=== PATIENT | male | born 1975 | race Caucasian/White ===

== ENCOUNTER → 2016-06-23 | Outpatient (CLI) | payer BC | LOC: COL.RAD 10:27 | DX: M65.871 Other synovitis and tenosynovitis, right ankle and foot (principal); S93.491A Sprain of other ligament of right ankle, initial encounter; M89.8X7 Other specified disorders of bone, ankle and foot ==

== ENCOUNTER 2020-11-28 07:14 | Emergency (ER) | payer BC ==
[~2020-11-28] VITALS: Ht 182.9 cm; Wt 104.5 kg
[2020-11-28] MEDS ORDERED: ZYLOPRIM 300MG300 MG PO (07:23)
[2020-11-28 07:38] LABS: COLLECTION METHOD CLEAN CATCH
[2020-11-28 07:43] LABS: MUCOUS Present /lpf; PH 5 (5-8); SQUAMOUS EPITHELIAL 0-2 /hpf; URINE APPEARANCE Clear; URINE BACTERIA None Seen /hpf; URINE BILIRUBIN Negative (NEGATIVE); URINE BLOOD 2+ (NEGATIVE); URINE COLOR Yellow; URINE GLUCOSE Negative (NEGATIVE); URINE KETONE Negative (NEGATIVE); URINE LEUKOCYTE ESTERASE Negative (NEGATIVE); URINE NITRATE Negative (NEGATIVE); URINE PROTEIN(semi-quant) Negative (NEGATIVE); URINE RBC >50 /hpf; URINE UROBILINOGEN Negative (NEGATIVE)
[2020-11-28 07:57] LABS: BASO # 0.1 (0.0-0.2); BASO % 0.7 % (0.0-2.0); EOS # 0.1 (0.0-0.7); EOS % 1.5 % (0-4.0); GRAN # 4.1 (1.4-6.5); GRAN % 54.4 % (42.2-75.2); HEMATOCRIT 44.7 % (42.0-52.0); HEMOGLOBIN 15.5 g/dl (13.5-18.0); LYMPH # 2.6 (1.2-3.4); LYMPH % 34.5 % (20.0-51.0); MEAN CELL VOLUME 91 fl (80.0-100.0); MEAN CORPUSCULAR HEMOGLOBIN 31 pg (27.0-31.0); MEAN CORPUSCULAR HGB CONC 35 g/dl (33.0-37.0); MEAN PLATELET VOLUME 9.5 fl (7.4-10.4); MONO # 0.6 (0.1-0.6); MONO % 8.2 % (1.7-9.3); PLATELET COUNT 309 K/mm3 (130-400); RED BLOOD COUNT 4.93 M/mm3 (4.20-5.60); REDCELL DISTRIBUTION WIDTH-CV 13.2 % (11.5-14.5)
[2020-11-28 08:11] LABS: ALBUMIN 4.1 gm/dL (3.5-5.0); BILIRUBIN,TOTAL 0.5 mg/dL (0.2-1.2); C-REACTIVE PROTEIN 0.1 mg/dL (0.00-0.50); CALCIUM 9.5 mg/dL (8.4-10.2); CREATININE, serum 1.14 mg/dL (0.72-1.25); TOTAL PROTEIN 7.1 gm/dL (6.2-8.1)
[2020-11-28] MEDS ORDERED: PERCOCET 325 MG1 TA2 PO (09:04)
[2020-11-28 09:23] VITALS: BP 137/96; PULSE 67
== END 2020-11-28 09:32 | disposition home or self-care (01) ==
LOC: COL.ER 07:14
PROVIDERS: Family Medicine
DX: N20.1 Calculus of ureter (principal); M10.9 Gout, unspecified; Z79.899 Other long term (current) drug therapy
CPT/HCPCS: J1885; J2270; J2405; J2550; J7120; Q9967

== ENCOUNTER 2022-06-24 16:33 | Emergency (ER) | payer BC ==
[~2022-06-24] VITALS: Ht 182.9 cm; Wt 111.4 kg
[~2022-06-24 16:33] MED LIST: PERCOCET 325 MG1 TA2 PO; ZYLOPRIM 300MG300 MG PO
[2022-06-24 17:09] LABS: BASO % 0.5 % (0.0-2.0); EOS # 0.1 K/mm3 (0.0-0.7); GRAN % 67.9 % (42.2-75.2); HEMATOCRIT 45.2 % (42.0-52.0); HEMOGLOBIN 15.9 g/dl (13.5-18.0); LYMPH # 1.2 K/mm3 (1.2-3.4); LYMPH % 19.7 % (20.0-51.0); MEAN CELL VOLUME 91 fl (80.0-100.0); MEAN CORPUSCULAR HEMOGLOBIN 32 pg (27-31); MEAN CORPUSCULAR HGB CONC 35 g/dl (33.0-37.0); MEAN PLATELET VOLUME 9.4 fl (7.4-10.4); MONO # 0.6 K/mm3 (0.1-0.6); MONO % 10.6 % (1.7-9.3); PLATELET COUNT 268 K/mm3 (130-400); RED BLOOD COUNT 4.97 M/mm3 (4.20-5.60); REDCELL DISTRIBUTION WIDTH-CV 12.9 % (11.5-14.5)
[2022-06-24 17:28] LABS: ALANINE AMINOTRANSFERASE 30 U/L (0-55); ALKALINE PHOSPHATASE 53 U/L (40-150); ANION GAP 9 mmol/L (7-16); AST,SGOT 24 U/L (5-34); BILIRUBIN,TOTAL 0.5 mg/dL (0.2-1.2); BLOOD UREA NITROGEN 13 mg/dL (9-21); CALCIUM 9.2 mg/dL (8.4-10.2); CARBON DIOXIDE 24 mmol/L (22-29); CHLORIDE 105 mmol/L (98-107); CREATININE, serum 0.93 mg/dL (0.72-1.25); GLUCOSE 124 mg/dL (70-99); SODIUM 138 mmol/L (136-145); TOTAL PROTEIN 7.4 gm/dL (6.2-8.1)
[2022-06-24 17:58] LABS: TROPONIN-I < 0.010 ng/mL (0.00-0.033)
[2022-06-24 21:11] VITALS: BP 117/78; PULSE 98; TEMP 98.3
== END 2022-06-24 21:08 | disposition home or self-care (01) ==
LOC: COL.ER 16:33
PROVIDERS: Emergency Medicine
DX: R07.2 Precordial pain (principal)